=== PATIENT | male | born 1960 ===

== ENCOUNTER 2017-11-16 11:04 | Inpatient (IN) | payer MEDICARE, MEDICAID ==
[2017-11-16 11:05] VITALS: BMI 26.4
[2017-11-16 13:23] LABS: BASO # 0.1 K/uL (0.0-0.2); BASO % 1.4 % (0.0-2.0); EOS # 0.1 K/uL (0.0-0.7); EOS % 1.2 % (0.0-4.0); LYMPH % 12.2 % (20.0-40.0); MEAN CELL VOLUME 70.4 fl (80.0-94.0); MEAN CORPUSCULAR HEMOGLOBIN 21.8 pg (27.0-31.0); MEAN PLATELET VOLUME 9.8 fl (7.2-11.7); MONO # 0.7 K/uL (0.0-0.8); MONO % 8.8 % (0.0-10.0); NEUT # 6.5 K/uL (1.8-7.0); NEUT % 76.4 % (50.0-75.0); RBC 5.05 Mil/uL (4.40-5.90); RED CELL DISTRIBUTION WIDTH 21.7 % (11.5-14.5); WHITE BLOOD COUNT 8.5 K/uL (4.8-10.8)
[2017-11-16 14:01] LABS: CALCIUM 9.3 mg/dL (8.4-10.2)
[2017-11-16 14:11] LABS: TROPONIN I 0.033 ng/mL (0.00-0.120)
--- NOTE | 2017-11-16 14:16 | RAD ---
PROCEDURE: CHEST RADIOGRAPH, 1 VIEW HISTORY: dyspnea COMPARISON: No priors. FINDINGS: LUNGS: Prominence of the pulmonary vasculature may be secondary to AP technique and/or pulmonary vascular congestion. Right basilar atelectasis versus infiltrate. PLEURA: Small right pleural effusion. No appreciable pneumothorax. CARDIOVASCULAR: Left subclavian access AICD/ pacemaker. Atherosclerotic aortic calcifications. Cardiomediastinal silhouette enlarged. OSSEOUS STRUCTURES: Degenerative changes. VISUALIZED UPPER ABDOMEN: Normal. OTHER FINDINGS: None. IMPRESSION: Prominence of the pulmonary vasculature may be secondary to AP technique and/or pulmonary vascular congestion. Right basilar atelectasis versus infiltrate. Small right pleural effusion.
[2017-11-16] MEDS ORDERED: Lidocaine 1% Inj (20ml) ONE (14:42)
--- NOTE | 2017-11-16 15:07 | PCM.SURG1 ---
Surgeon's Initial Post Op Note - Surgeon's Notes Surgeon: Tiago Matamoros MD Emergency Room Tech: NONE Type of Anesthesia: None Pre-Operative Diagnosis: Malpositioned picc, heart failure Operative Findings: Right arm picc non functional. Post-Operative Diagnosis: Heart failure Operation Performed: Removal of right arm picc and placement of a single lumen 5 fr picc trimmed to 37 cm. Tip of picc in the SVC. Specimen/Specimens Removed: Existing picc Estimated Blood Loss: EBL {In ML}: 0 Blood Products Given: N/A Drains Used: No Drains Date of Surgery/Procedure: 11/16/17 Time of Surgery/Procedure: 15:00
--- NOTE | 2017-11-16 16:46 | ED PDOC ---
HPI: SOB/CHF/COPD Time Seen by Provider: 11/16/17 11:21 Chief Complaint (Nursing): Shortness Of Breath Chief Complaint (Provider): Shortness Of Breath History Per: Patient History/Exam Limitations: no limitations Onset/Duration Of Symptoms: Days (x 1 week) Current Symptoms Are (Timing): Still Present Associated Symptoms: Ankle/Leg Swelling Additional Complaint(s): Mayito Wong is a 57 y/o male who presents to the ER for difficulty breathing for 1 week. Patient also noticed a problem with his PICC line this morning; noticed swelling around the PICC line. Reports history of CHF, has a PICC line in place for a milrinone continuous drip, managed by his dial brusher Dr. Marley. Last week patient began having more increased leg swelling than usual, abdomen was more distended, and he began gaining significant weight. States he was just discharged from [facility] earlier this week for similar complaints. At the end of 2016, he was seen at [facility] with Dr. Marley for cardiac catheterization showing multiple vessel disease, and was recommended to have a CABG. Dr. Marley also referred him to [facility] for a transplant, but he did not follow up with that. Patient wants to see Dr. Pedraza for second opinion, which was scheduled for tomorrow. PMD: Dr. Lord - Risk Factors PE Risk Factors: Pos: CHF Past Medical History Reviewed: Historical Data, Nursing Documentation, Vital Signs Vital Signs: Last Vital Signs Temp 97.8 F 11/19/17 12:17 Pulse 102 H 11/19/17 12:17 Resp 18 11/19/17 12:17 BP 93/74 L 11/19/17 12:17 Pulse Ox 99 11/19/17 12:17 - Medical History PMH: Asthma, CAD, CHF, Diabetes, HTN, Hypercholesterolemia - Surgical History Surgical History: Pacemaker Denies: Coronary Stent Other surgeries: PICC line placement - Family History Family History: States: Unknown Family Hx - Social History Ex-Smoker (has not smoked in the last 12 months): Yes Alcohol: None Drugs: Denies - Immunization History Hx Tetanus Toxoid Vaccination: Yes (03/17/2013) Hx Influenza Vaccination: Yes Hx Pneumococcal Vaccination: Yes - Home Medications Home Medications: Ambulatory Orders Medication Instructions Recorded Aspirin [Aspirin Chewable] 81 mg PO DAILY 11/16/17 Atorvastatin [Lipitor] 40 mg PO HS 11/16/17 Carvedilol [Coreg] 3.125 mg PO DAILY 11/16/17 Clopidogrel [Plavix] 75 mg PO DAILY 11/16/17 Furosemide [Lasix] 40 mg PO BID 11/16/17 Gabapentin [Neurontin] 300 mg PO HS 11/16/17 Pantoprazole [Protonix EC Tab] 40 mg PO DAILY 11/16/17 levETIRAcetam [Keppra] 500 mg PO Q12 11/16/17 - Allergies Allergies/Adverse Reactions: Allergies Allergy/AdvReac Type Severity Reaction Status Date / Time No Known Allergies Allergy Verified 08/08/17 13:34 Review of Systems ROS Statement: Except As Marked, All Systems Reviewed And Found Negative Constitutional: Positive for: Other (PICC line malfunction) Respiratory: Positive for: Shortness of Breath Gastrointestinal: Positive for: Other (distension, + weight gain) Musculoskeletal: Positive for: Other (increasing lower leg edema) Physical Exam - Reviewed Nursing Documentation Reviewed: Yes Vital Signs Reviewed: Yes - Physical Exam Appears: Positive for: Non-toxic, No Acute Distress Head Exam: Positive for: ATRAUMATIC, NORMOCEPHALIC Skin: Positive for: Normal Color, Warm, Dry Eye Exam: Positive for: EOMI, Normal appearance, PERRL Neck: Positive for: Normal, Painless ROM Cardiovascular/Chest: Positive for: Regular Rate, Rhythm, Other (pacemaker in place). Negative for: Murmur Respiratory: Positive for: Normal Breath Sounds. Negative for: Accessory Muscle Use, Wheezing, Respiratory Distress Pulses-Radial (L): 2+ Pulses-Radial (R): 2+ Gastrointestinal/Abdominal: Positive for: Soft, Distended. Negative for: Tenderness Extremity: Positive for: Normal ROM, Swelling (Pitting edema at bilateral legs) , Other (PICC line at right arm). Negative for: Deformity Neurologic/Psych: Positive for: Alert, Oriented - Laboratory Results Result Diagrams: 11/19/17 05:35 11/18/17 07:21 - ECG O2 Sat by Pulse Oximetry: 100 (RA) Pulse Ox Interpretation: Normal Medical Decision Making Medical Decision Making: Initial Impression: Dyspnea, PICC line malfunction Differentials include: CHF exacerbation, PICC line misplacement Time: 12:44 Initial Plan: --BMP --pro BNP --Troponin I --CBC w/ differential --EKG --Chest X-ray --Reevaluation 14:14 CHEST X-RAY FINDINGS: LUNGS: Prominence of the pulmonary vasculature may be secondary to AP technique and/or pulmonary vascular congestion. Right basilar atelectasis versus infiltrate. PLEURA: Small right pleural effusion. No appreciable pneumothorax. CARDIOVASCULAR: Left subclavian access AICD/ pacemaker. Atherosclerotic aortic calcifications. Cardiomediastinal silhouette enlarged. OSSEOUS STRUCTURES: Degenerative changes. VISUALIZED UPPER ABDOMEN: Normal. OTHER FINDINGS: None. IMPRESSION: Prominence of the pulmonary vasculature may be secondary to AP technique and/or pulmonary vascular congestion. Right basilar atelectasis versus infiltrate. Small right pleural effusion. Reviewed findings, consistent with CHF exacerbation in the patient. Arranged for PICC line placement by IR. Time: 14:20 Discussed case w/ Dr. Marley, patients dial brusher, who will be on consult Time: 14:21 Discussed case w/ Dr. Lord, who will admit the patient for CHF exacerbation Scribe Attestation: Documented by Adelaide Nevarez, acting as a scribe for Sofia Falcon MD Provider Scribe Attestation: All medical record entries made by the Scribe were at my direction and personally dictated by me. I have reviewed the chart and agree that the record accurately reflects my personal performance of the history, physical exam, medical decision making, and the department course for this patient. I have also personally directed, reviewed, and agree with the discharge instructions and disposition. Disposition - Clinical Impression Clinical Impression: CHF exacerbation - Patient ED Disposition Is Patient to be Admitted: Yes Discussed With : Cristiano Lord Doctor Will See Patient In The: Hospital Counseled Patient/Family Regarding: Studies Performed, Diagnosis - Disposition Disposition Time: 14:21 Condition: FAIR - Pt Status Changed To: Hospital Disposition Of: Inpatient - Admit Certification Admit to Inpatient:: After my assessment, the patient will require hospitalization for at least two midnights. This is because of the severity of symptoms shown, intensity of services needed, and/or the medical risk in this patient being treated as an outpatient. - POA Present On Arrival: None
[2017-11-16] MEDS: Insulin Lispro (humaLOG) 100 Units/ml Inj SC SCH (22:00)
[2017-11-17] MEDS: Insulin Lispro (humaLOG) 100 Units/ml Inj SC SCH ×4 (06:47→22:00)
--- NOTE | 2017-11-17 08:36 | CARD ---
APPROVED REPORT EKG Measurement Heart [id number] <Conclusion> Atrial-sensed ventricular-paced rhythm Abnormal ECG
[2017-11-17 09:09] LABS: HEMOGLOBIN 10.3 g/dL (12.0-18.0); MEAN CELL VOLUME 71.2 fl (80.0-94.0); MEAN CORPUSCULAR HEMOGLOBIN 21.4 pg (27.0-31.0); MEAN CORPUSCULAR HGB CONC 30.1 g/dL (33.0-37.0); RBC 4.8 Mil/uL (4.40-5.90); RED CELL DISTRIBUTION WIDTH 21.4 % (11.5-14.5); WHITE BLOOD COUNT 8.3 K/uL (4.8-10.8)
[2017-11-17 09:18] LABS: CALCIUM 8.8 mg/dL (8.4-10.2)
[2017-11-17] MEDS: Pantoprazole 40 mg EC Tab PO SCH (09:20)
[2017-11-17] MEDS: Albuterol-Ipratrop 3 mg / 0.5 (3 ml) UD INH PRN ×2 (12:42→19:22)
--- NOTE | 2017-11-17 18:52 | CP.PCM.CON ---
History of Present Illness - History of Present Illness History of Present Illness: I was asked to see patient by Dr Lord. Patient is a 57 year old male with PMH NYHA Class 3 heart failure on milrinone, ischeic cardiomyopathy, BiVAICD who presents with acute on chronic systolic dysfunction. The patient was placed on milrinone due to mutlipl admissions for heart failure. He has been referred to cardiac surgery for high risk CABG, but initially refused. He most recently to have heart failure evaluation at [facility]. The patient has been somewhat noncompliant with his care, and now is agreeable based upon the severity of his symptoms. The patient was found to have dislodged PICC line and was not receiving milrinone therapy. He denies chest pain now. Review of Systems - Constitutional Constitutional: absent: As Per HPI, Anorexia, Chills, Daytime Sleepiness, Excessive Sweating, Fatigue, Fever, Frequent Falls, Headache, Increased Appetite , Lethargy, Malaise, Night Sweats, Snoring, Sleep Apnea, Weight Gain, Weight Loss, Weakness, Other - EENT Eyes: absent: As Per HPI, Blind Spots, Blurred Vision, Change in Vision, Decreased Night Vision, Diplopia, Discharge, Dry Eye, Exophthalmos, Floaters, Irritation, Itchy Eyes, Loss of Peripheral Vision, Pain, Photophobia, Requires Corrective Lenses, Sees Flashes, Spots in Vision, Tunnel Vision, Other Visual Disturbances, Loss of Vision, Other Ears: absent: As Per HPI, Decreased Hearing, Ear Discharge, Ear Pain, Tinnitus, Abnormal Hearing, Disequilibrium, Dizziness, Other Nose/Mouth/Throat: absent: As Per HPI, Epistaxis, Nasal Congestion, Nasal Discharge, Nasal Obstruction, Nasal Trauma, Nose Pain, Post Nasal Drip, Sinus Pain, Sinus Pressure, Bleeding Gums, Change in Voice, Dental Pain, Dry Mouth, Dysphagia, Halitosis, Hoarsness, Lip Swelling, Mouth Lesions, Mouth Pain, Odynophagia, Sore Throat, Throat Swelling, Tongue Swelling, Facial Pain, Neck Pain, Neck Mass, Other - Cardiovascular Cardiovascular: Dyspnea - Respiratory Respiratory: Dyspnea - Gastrointestinal Gastrointestinal: absent: As Per HPI, Abdominal Pain, Belching, Bloating, Change in Bowel Habits, Change in Stool Character, Coffee Ground Emesis, Constipation, Cramping, Diarrhea, Dyspepsia, Dysphagia, Early Satiety, Excessive Flatus, Fecal Incontinence, Heartburn, Hematemesis, Hematochezia, Loose Stools, Melena, Nausea, Odynophagia, Temesmus, Vomiting, Other - Genitourinary Genitourinary: absent: As Per HPI, Change in Urinary Stream, Difficulty Urinating, Dysuria, Flank Pain, Hematuria, Pyuria, Nocturia, Urinary Incontinence, Urinary Frequency, Urinary Hesitance, Urinary Urgency, Voiding Freq/Small Amts, Freq UTI, Hx Renal/Bladder Calculi, Hx /Renal Surgery, Bladder Distension, Other - Musculoskeletal Musculoskeletal: absent: As Per HPI, Abnormal Gait, Arthralgias, Atrophy, Back Pain, Deformity, Joint Swelling, Limited Range of Motion, Loss of Height, Muscle Cramps, Muscle Weakness, Myalgias, Neck Pain, Numbness, Radiating Pain into Limb, Stiffness, Tingling, Other - Integumentary Integumentary: absent: As Per HPI, Acne, Alopecia, Bleeding Lesions, Change in Hair, Change in Nails, Change in Pigmentation, Changing Lesions, Dry Skin, Erythema, Furuncle, Hirsutism, Lesions, New Lesions, Non-Healing Lesions, Photosensitivity, Pruritus, Rash, Skin Pain, Skin Ulcer, Sores, Striae, Swelling , Unusual Bruising, Wounds, Jaundice, Other - Neurological Neurological: absent: As Per HPI, Abnormal Gait, Abnormal Hearing, Abnormal Movements, Abnormal Speech, Behavioral Changes, Burning Sensations, Confusion, Convulsions, Disequilibrium, Dizziness, Numbness, Focal Weakness, Frequent Falls , Headaches, Lack of Coordination, Loss of Vision, Memory Loss, Paresthesias, Radicular Pain, Restless Legs, Sensory Deficit, Syncope, Tingling, Tremor, Vertigo, Weakness, Other Visual Disturbances, Other - Psychiatric Psychiatric: absent: As Per HPI, Abnormal Sleep Pattern, Anhedonia, Anxiety, Auditory Hallucinations, Behavioral Changes, Change in Appetite, Change in Libido, Confusion, Depression, Difficulty Concentrating, Hallucinations, Homicidal Ideation, Hopelessness, Irritability, Memory Loss, Mood Swings, Panic Attacks, Paranoia, Suicidal Ideation, Visual Hallucinations, Tactile Hallucinations, Other - Endocrine Endocrine: absent: As Per HPI, Change in Body Appearance, Change in Libido, Cold Intolorance, Deepening of Voice, Excessive Sweating, Fatigue, Flushing, Heat Intolorance, Increase in Ring/Shoe/Hat Size, Palpitations, Polydipsia, Polyphagia, Polyuria, Other - Hematologic/Lymphatic Hematologic: absent: As Per HPI, Easy Bleeding, Easy Bruising, Lymphadenopathy, Other Past Patient History - Infectious Disease Hx of Infectious Diseases: None - Past Medical History & Family History Past Medical History?: Yes - Past Social History Smoking Status: Former Smoker - CARDIAC Hx Cardiac Disorders: Yes Hx Congestive Heart Failure: Yes Hx Hypercholesterolemia: Yes Hx Hypertension: Yes - PULMONARY Hx Respiratory Disorders: No - NEUROLOGICAL Hx Neurological Disorder: No - HEENT Hx HEENT Problems: No - RENAL Hx Chronic Kidney Disease: No - ENDOCRINE/METABOLIC Hx Endocrine Disorders: Yes Hx Adrenal Cancer: No - HEMATOLOGICAL/ONCOLOGICAL Hx Blood Disorders: No - INTEGUMENTARY Hx Dermatological Problems: No - MUSCULOSKELETAL/RHEUMATOLOGICAL Hx Musculoskeletal Disorders: No Hx Falls: No - GASTROINTESTINAL Hx Gastrointestinal Disorders: Yes Hx Ulcer: Yes - GENITOURINARY/GYNECOLOGICAL Hx Genitourinary Disorders: No - PSYCHIATRIC Hx Psychophysiologic Disorder: No Hx Substance Use: No - SURGICAL HISTORY Hx Surgeries: Yes Hx Cardiac Catheterization: Yes Hx Coronary Stent: No Other/Comment: picc line insertion - ANESTHESIA Hx Anesthesia: Yes Hx Anesthesia Reactions: No Hx Malignant Hyperthermia: No Has any member of the family had a problem w/ anesthesia?: No Meds Allergies/Adverse Reactions: Allergies Allergy/AdvReac Type Severity Reaction Status Date / Time No Known Allergies Allergy Verified 08/08/17 13:34 - Medications Medications: Current Medications Albuterol/Ipratropium (Duoneb 3 Mg/0.5 Mg (3 Ml) Ud) 3 ml INH RQ6 PRN PRN Reason: Shortness of Breath Last Admin: 11/17/17 12:42 Dose: 3 ml Aspirin (Aspirin Chewable) 81 mg PO DAILY [facility] Last Admin: 11/17/17 09:22 Dose: 81 mg Atorvastatin Calcium (Lipitor) 40 mg PO HS [facility] Last Admin: 11/16/17 23:08 Dose: 40 mg Carvedilol (Coreg) 3.125 mg PO DAILY [facility] Last Admin: 11/17/17 09:19 Dose: 3.125 mg Clopidogrel Bisulfate (Plavix) 75 mg PO DAILY [facility] Last Admin: 11/17/17 09:19 Dose: 75 mg Furosemide (Lasix) 40 mg IV DAILY [facility] Last Admin: 11/17/17 09:20 Dose: 40 mg Gabapentin (Neurontin) 300 mg PO HS [facility] Last Admin: 11/16/17 23:09 Dose: 300 mg Home Med (Patient's Own Medication) 84 unit IV DAILY [facility] Insulin Human Lispro (Humalog) 0 units SC ACHS [facility] PRN Reason: Protocol Last Admin: 11/17/17 17:23 Dose: Not Given Lactulose (Enulose) 20 gm PO Q4 [facility] Levetiracetam (Keppra) 500 mg PO Q12 [facility] Last Admin: 11/17/17 09:18 Dose: 500 mg Pantoprazole Sodium (Protonix Ec Tab) 40 mg PO DAILY [facility] Last Admin: 11/17/17 09:20 Dose: 40 mg Spironolactone (Aldactone) 25 mg PO DAILY [facility] Last Admin: 11/17/17 13:58 Dose: 25 mg Physical Exam - Constitutional Appears: Chronically Ill - Head Exam Head Exam: NORMAL INSPECTION - Eye Exam Eye Exam: Normal appearance - ENT Exam ENT Exam: Mucous Membranes Moist - Neck Exam Neck exam: Positive for: Normal Inspection - Respiratory Exam Respiratory Exam: Decreased Breath Sounds - Cardiovascular Exam Cardiovascular Exam: REGULAR RHYTHM - GI/Abdominal Exam GI & Abdominal Exam: Distended - Rectal Exam Rectal Exam: Deferred - Extremities Exam Extremities exam: Positive for: pedal edema - Back Exam Back exam: NORMAL INSPECTION - Neurological Exam Neurological exam: Alert, Oriented x3 - Psychiatric Exam Psychiatric exam: Normal Affect - Skin Skin Exam: Normal Color Results - Vital Signs Recent Vital Signs: Last Vital Signs Temp 97.7 F 11/17/17 16:58 Pulse 62 11/17/17 16:58 Resp 20 11/17/17 16:58 BP 97/62 L 11/17/17 16:58 Pulse Ox 97 11/17/17 16:58 - Labs Result Diagrams: 11/17/17 08:35 11/17/17 08:35 Labs: Laboratory Results - last 24 hr 11/16/17 11/17/17 11/17/17 22:10 06:46 08:35 WBC 8.3 RBC 4.80 Hgb 10.3 L Hct 34.2 L MCV 71.2 L MCH 21.4 L MCHC 30.1 L RDW 21.4 H Plt Count 222 Sodium Potassium Chloride Carbon Dioxide Anion Gap BUN Creatinine Est GFR ( Amer) Est GFR (Non-Af Amer) POC Glucose (mg/dL) 141 H 104 Random Glucose Calcium 11/17/17 11/17/17 11/17/17 08:35 11:04 15:52 WBC RBC Hgb Hct MCV MCH MCHC RDW Plt Count Sodium 136 Potassium 4.4 Chloride 99 Carbon Dioxide 25 Anion Gap 16 BUN 35 H Creatinine 1.5 Est GFR ( Amer) 59 Est GFR (Non-Af Amer) 48 POC Glucose (mg/dL) 174 H 81 Random Glucose 102 Calcium 8.8 - EKG Data EKG Interpreted by: Myself Assessment & Plan (1) Acute on chronic systolic and diastolic heart failure, NYHA class 3 Assessment and Plan: will continue milrinone therapy. I discussed the need for evalaution by heart failure team in [place]. The patient and his agree. Status: Acute (2) CAD (coronary artery disease) Assessment and Plan: antiplatelet therapy Status: Acute
[2017-11-18 08:05] LABS: MEAN CELL VOLUME 89.3 fl (80.0-94.0); MEAN CORPUSCULAR HEMOGLOBIN 29.6 pg (27.0-31.0); MEAN CORPUSCULAR HGB CONC 33.1 g/dL (33.0-37.0); RBC 3.72 Mil/uL (4.40-5.90); RED CELL DISTRIBUTION WIDTH 15.1 % (11.5-14.5); WHITE BLOOD COUNT 8.6 K/uL (4.8-10.8)
[2017-11-18 08:33] LABS: BLOOD UREA NITROGEN 12 mg/dl (9-20); CALCIUM 8.1 mg/dL (8.4-10.2); GFR AFRICAN-AMERICAN > 60; GFR NON-AFRICAN AMERICAN > 60; MAGNESIUM 1.9 MG/DL (1.6-2.3)
[2017-11-18] MEDS: Insulin Lispro (humaLOG) 100 Units/ml Inj SC SCH ×4 (08:51→21:44)
[2017-11-18] MEDS: Pantoprazole 40 mg EC Tab PO SCH (08:52)
--- NOTE | 2017-11-18 08:57 | HP ---
HISTORY OR PRESENT ILLNESS: This is a 57-year-old male with history of multiple medical problems including ischemic cardiomyopathy with multivessel coronary artery disease, currently on milrinone drip, presented to emergency room with symptoms of shortness of breath, both exertional and at rest as well as bilateral lower extremity edema and increase of abdominal girth. The patient was evaluated in the emergency room and he was found also to have malfunctioning PICC line. PICC line was reinserted and milrinone drip was continued and the patient was admitted to telemetry floor for further management. OTHER REVIEW OF SYSTEMS: Generalized weakness and easy fatigability. MEDICATIONS: As per MAR. SOCIAL HISTORY: Ex-smoker. No EtOH or substance abuse. FAMILY HISTORY: Noncontributory. PAST MEDICAL HISTORY: Ischemic cardiomyopathy, multivessel coronary artery disease, type 2 diabetes mellitus, congestive heart failure, and hypertension. PHYSICAL EXAMINATION: GENERAL: The patient is in bed, in mild distress. VITAL SIGNS: Blood pressure 102/69, temperature 97.7, respiratory rate 20, and pulse 92. HEENT: Pupils equal, reactive to light. Normal-appearing mucosa of the conjunctivae, oropharynx, and nasal membrane mucosa. NECK: Supple. No JVD. No carotid bruit. No lymph node. No thyromegaly. CHEST AND LUNGS: Bilateral symmetrical expansion. Good air exchange. The patient has rales on bilateral bases. CARDIOVASCULAR SYSTEM: PMI not localized. S1, S2. No additional sounds. ABDOMEN: Normoactive bowel sounds. No tenderness. No organomegaly. No masses. EXTREMITIES: No cyanosis. No clubbing. No edema. CENTRAL NERVOUS SYSTEM: Alert, awake, oriented x3. No neurological deficits could be appreciated. ASSESSMENT: 1. Exacerbation of congestive heart failure, both systolic and diastolic, acute on chronic. 2. Ischemic cardiomyopathy. 3. Coronary artery disease. PLAN: Continue diuretics that ordered. Cardiology consult and follow recommendations. Resume the patient's home medications. Accu-Cheks with insulin coverage. We will add spironolactone daily and continue the furosemide intravenously. Guarded prognosis. Cristiano Lord MD [facility] # [phone]
[2017-11-18] MEDS: Albuterol-Ipratrop 3 mg / 0.5 (3 ml) UD INH PRN ×2 (11:12→19:27)
--- NOTE | 2017-11-18 14:41 | CP.PCM.PN ---
Subjective - Date & Time of Evaluation Date of Evaluation: 11/18/17 Time of Evaluation: 14:30 - Subjective Subjective: pateint has less dyspnea Objective - Vital Signs/Intake and Output Vital Signs (last 24 hours): Temp Pulse Resp BP Pulse Ox 97.5 F L 99 H 16 101/68 96 11/18/17 12:24 11/18/17 12:24 11/18/17 12:24 11/18/17 12:24 11/18/17 12:24 Intake and Output: 11/18/17 11/18/17 06:59 18:59 Intake Total 300 Output Total 400 Balance -100 - Medications Medications: Current Medications Albuterol/Ipratropium (Duoneb 3 Mg/0.5 Mg (3 Ml) Ud) 3 ml INH RQ6 PRN PRN Reason: Shortness of Breath Last Admin: 11/18/17 11:12 Dose: 3 ml Aspirin (Aspirin Chewable) 81 mg PO DAILY [facility] Last Admin: 11/18/17 08:50 Dose: 81 mg Atorvastatin Calcium (Lipitor) 40 mg PO HS [facility] Last Admin: 11/17/17 21:11 Dose: 40 mg Carvedilol (Coreg) 3.125 mg PO DAILY [facility] Last Admin: 11/18/17 08:50 Dose: 3.125 mg Clopidogrel Bisulfate (Plavix) 75 mg PO DAILY [facility] Last Admin: 11/18/17 08:50 Dose: 75 mg Furosemide (Lasix) 40 mg IV DAILY [facility] Last Admin: 11/18/17 08:52 Dose: 40 mg Gabapentin (Neurontin) 300 mg PO HS [facility] Last Admin: 11/17/17 21:11 Dose: 300 mg Home Med (Patient's Own Medication) 84 unit IV DAILY [facility] Insulin Human Lispro (Humalog) [address] [facility] PRN Reason: Protocol Last Admin: 11/18/17 11:41 Dose: 2 units Lactulose (Enulose) 20 gm PO Q4 [facility] Last Admin: 11/18/17 14:00 Dose: 20 gm Levetiracetam (Keppra) 500 mg PO Q12 [facility] Last Admin: 11/18/17 08:50 Dose: Not Given Pantoprazole Sodium (Protonix Ec Tab) 40 mg PO DAILY [facility] Last Admin: 11/18/17 08:52 Dose: 40 mg Spironolactone (Aldactone) 25 mg PO DAILY [facility] Last Admin: 11/18/17 08:52 Dose: 25 mg - Labs Labs: 11/18/17 07:21 11/18/17 07:21 - Constitutional Appears: Non-toxic - Head Exam Head Exam: NORMAL INSPECTION - Eye Exam Eye Exam: Normal appearance - ENT Exam ENT Exam: Mucous Membranes Moist - Neck Exam Neck Exam: Full ROM - Respiratory Exam Respiratory Exam: Decreased Breath Sounds - Cardiovascular Exam Cardiovascular Exam: REGULAR RHYTHM - GI/Abdominal Exam GI & Abdominal Exam: Normal Bowel Sounds - Rectal Exam Rectal Exam: Deferred - Extremities Exam Extremities Exam: Pedal Edema - Back Exam Back Exam: NORMAL INSPECTION - Neurological Exam Neurological Exam: Alert - Psychiatric Exam Psychiatric exam: Normal Affect - Skin Skin Exam: Normal Color Assessment and Plan (1) Acute on chronic systolic and diastolic heart failure, NYHA class 3 Assessment & Plan: still appears volume overloaded. conitnue milrinone, diuresis Status: Acute (2) CAD (coronary artery disease) Status: Acute
--- NOTE | 2017-11-19 02:46 | PN ---
DATE: 11/18/2017 DAILY PROGRESS NOTE SUBJECTIVE: The patient is seen today, 11/18/2017. He is not in any cardiopulmonary distress; at the time of this examination with a decreased generalized edema. PHYSICAL EXAMINATION VITAL SIGNS: Blood pressure is 105/73, temperature 97.3, respiratory rate 18 and pulse 90. HEENT: Pupils equal, reactive to light. Normal-appearing mucosa of the conjunctivae, oropharyngeal and nasal membrane mucosa. NECK: Supple. No JVD, no carotid bruit, no lymph node, no thyromegaly. CHEST AND LUNGS: Bilateral symmetrical expansion, had decreased air entry in both lower lung weaver. CARDIOVASCULAR SYSTEM: PMI not localized. S1, S2. No additional sounds. ABDOMEN: Normoactive bowel sounds. No tenderness. No organomegaly. No masses. EXTREMITIES: No cyanosis, no clubbing, no edema. CENTRAL NERVOUS SYSTEM: Alert, awake, oriented x2. No neurological deficit could be appreciated. ASSESSMENT: 1. Ischemic cardiomyopathy. 2. Exacerbation of congestive heart failure, acute on chronic systolic and diastolic, currently on milrinone drip. 3. Type 2 diabetes mellitus. PLAN: Follow up Cardiology recommendations and continue IV Lasix, daily weight. Continue Accu-Cheks with insulin coverage as needed. Cristiano Lord MD
[2017-11-19 06:28] LABS: HEMOGLOBIN 9.8 g/dL (12.0-18.0); MEAN CELL VOLUME 70.5 fl (80.0-94.0); MEAN CORPUSCULAR HEMOGLOBIN 21.9 pg (27.0-31.0); MEAN CORPUSCULAR HGB CONC 31.1 g/dL (33.0-37.0); RBC 4.5 Mil/uL (4.40-5.90); RED CELL DISTRIBUTION WIDTH 21.7 % (11.5-14.5); WHITE BLOOD COUNT 8.2 K/uL (4.8-10.8)
[2017-11-19] MEDS: Insulin Lispro (humaLOG) 100 Units/ml Inj SC SCH ×3 (06:54→17:24)
[2017-11-19] MEDS: Pantoprazole 40 mg EC Tab PO SCH (09:22)
[2017-11-19 12:40] VITALS: O2SAT 100
--- NOTE | 2017-11-19 14:39 | CP.PCM.PN ---
Subjective - Date & Time of Evaluation Date of Evaluation: 11/19/17 Time of Evaluation: 14:20 - Subjective Subjective: no current dyspnea. less edema Objective - Vital Signs/Intake and Output Vital Signs (last 24 hours): Temp Pulse Resp BP Pulse Ox 97.8 F 102 H 18 93/74 L 100 11/19/17 12:17 11/19/17 12:17 11/19/17 12:17 11/19/17 12:17 11/19/17 12:40 - Medications Medications: Current Medications Albuterol/Ipratropium (Duoneb 3 Mg/0.5 Mg (3 Ml) Ud) 3 ml INH RQ6 PRN PRN Reason: Shortness of Breath Last Admin: 11/18/17 19:27 Dose: 3 ml Aspirin (Aspirin Chewable) 81 mg PO DAILY [facility] Last Admin: 11/19/17 09:20 Dose: 81 mg Atorvastatin Calcium (Lipitor) 40 mg PO HS [facility] Last Admin: 11/18/17 21:42 Dose: 40 mg Carvedilol (Coreg) 3.125 mg PO DAILY [facility] Last Admin: 11/19/17 09:20 Dose: 3.125 mg Clopidogrel Bisulfate (Plavix) 75 mg PO DAILY [facility] Last Admin: 11/19/17 09:22 Dose: 75 mg Furosemide (Lasix) 40 mg IV DAILY [facility] Last Admin: 11/19/17 09:21 Dose: 40 mg Gabapentin (Neurontin) 300 mg PO HS [facility] Last Admin: 11/18/17 21:42 Dose: 300 mg Home Med (Patient's Own Medication) 84 unit IV DAILY [facility] Insulin Human Lispro (Humalog) 0 units SC [facility] PRN Reason: Protocol Last Admin: 11/19/17 06:54 Dose: Not Given Lactulose (Enulose) 20 gm PO Q4 [facility] Last Admin: 11/19/17 09:23 Dose: 20 gm Levetiracetam (Keppra) 500 mg PO Q12 [facility] Last Admin: 11/18/17 21:42 Dose: 500 mg Pantoprazole Sodium (Protonix Ec Tab) 40 mg PO DAILY [facility] Last Admin: 11/19/17 09:22 Dose: 40 mg Spironolactone (Aldactone) 25 mg PO DAILY [facility] Last Admin: 11/19/17 09:20 Dose: 25 mg - Labs Labs: 11/19/17 05:35 11/18/17 07:21 - Constitutional Appears: Non-toxic - Head Exam Head Exam: NORMAL INSPECTION - Eye Exam Eye Exam: Normal appearance - ENT Exam ENT Exam: Mucous Membranes Moist - Neck Exam Neck Exam: Full ROM - Respiratory Exam Respiratory Exam: Decreased Breath Sounds - Cardiovascular Exam Cardiovascular Exam: REGULAR RHYTHM - GI/Abdominal Exam GI & Abdominal Exam: Normal Bowel Sounds - Rectal Exam Rectal Exam: Deferred - Extremities Exam Extremities Exam: Pedal Edema - Back Exam Back Exam: NORMAL INSPECTION - Neurological Exam Neurological Exam: Alert - Psychiatric Exam Psychiatric exam: Normal Affect - Skin Skin Exam: Normal Color Assessment and Plan (1) Acute on chronic systolic and diastolic heart failure, NYHA class 3 Assessment & Plan: on milrinone. stable for discharge. patient to follow up with [facility]. Status: Acute (2) CAD (coronary artery disease) Status: Acute
[2017-11-19] MEDS: Albuterol-Ipratrop 3 mg / 0.5 (3 ml) UD INH PRN (15:03)
[2017-11-19 16:03] VITALS: BP 99/70; PULSE 100; RESP 16; TEMP 97.3
--- NOTE | 2017-11-20 10:04 | DS ---
REASON FOR ADMISSION: This is a 57-year-old male with history of multiple medical problems including ischemic cardiomyopathy and congestive heart failure, who was admitted through the emergency room for exacerbation of the same. COURSE OF HOSPITALIZATION: The patient was admitted to telemetry floor and he was continued on the milrinone drip. The patient had malfunctioning IV line on admission and a new line was placed. The patient was continued on diuretics and spironolactone. He had a Cardiology consult done by Dr. Marley. The patient was referred to Cardiothoracic Surgery in [facility] for possible coronary artery bypass graft surgery. FINAL DIAGNOSES: 1. Congestive heart failure. 2. Ischemic cardiomyopathy. 3. Type 2 diabetes mellitus. 4. Hypertension. [facility] MD Pop
--- NOTE | 2017-11-20 13:56 | VASCULAR ---
PROCEDURE: Date of procedure: 11/16/2017 Procedure: 1. Placement of a right arm PICC with ultrasound and fluoroscopic guidance, CPT 37307 2. PICC tip confirmation with spot radiograph and is in the superior vena cava Medications: 1 percent lidocaine Total Fluoro time: 6 seconds Radiation: 0.86 MGy EBL: 2 cc HISTORY: Infection requiring long-term IV antibiotics TECHNIQUE: Following informed consent and procedure time-out, the patient was placed supine on the interventional table and the right arm prepped and draped in the usual sterile fashion. Ultrasound showed a patent and compressible right basilic vein. After the skin was anesthetized with lidocaine, the basilic vein was accessed with micro micropuncture technique using ultrasound guidance. A guidewire was then advanced under fluoroscopic guidance into the superior vena cava. An image documenting ultrasound guidance for vascular access was permanently saved. The length of the single-lumen 4 [place] PICC was trimmed to 37 centimeters and advanced through a peel-away sheath. The PICC was position with tip of PICC confirm a spot radiograph the superior vena cava. The PICC was secured to the patient's skin. The PICC was flushed. A biopatch and sterile dressing was applied. IMPRESSION: Placement of a single-lumen 4 [place] PICC trimmed to 37 centimeters via right basilic vein. The tip of the PICC is confirmed with spot radiograph and is in the superior vena cava.
== END 2017-11-19 18:30 | disposition home health service (06) | DRG 292 ==
LOC: H.ER 11:04 → H.ERHOLD 14:21 → H.TEL 19:58
PROVIDERS: ADMIT Internal Medicine; ATTEND Internal Medicine
PROC: 02HV33Z Insertion of Infusion Device into Superior Vena Cava, Percutaneous Approach (ICD-10-PCS; principal; 2017-11-16)
PROC: B518ZZA Fluoroscopy of Superior Vena Cava, Guidance (ICD-10-PCS; 2017-11-16)
PROC: B548ZZA Ultrasonography of Superior Vena Cava, Guidance (ICD-10-PCS; 2017-11-16)
PROC: 02PY33Z Removal of Infusion Device from Great Vessel, Percutaneous Approach (ICD-10-PCS; 2017-11-16)
DX: I11.0 Hypertensive heart disease with heart failure (principal); T82.524A Displacement of infusion catheter, initial encounter; I50.43 Acute on chronic combined systolic (congestive) and diastolic (congestive) heart failure; J44.9 Chronic obstructive pulmonary disease, unspecified; Y71.2 Prosthetic and other implants, materials and accessory cardiovascular devices associated with adverse incidents; Z79.02 Long term (current) use of antithrombotics/antiplatelets; Z79.899 Other long term (current) drug therapy; Z87.891 Personal history of nicotine dependence; Z91.19 Patient's noncompliance with other medical treatment and regimen; I25.10 Atherosclerotic heart disease of native coronary artery without angina pectoris; I25.5 Ischemic cardiomyopathy; M79.89 Other specified soft tissue disorders; E11.9 Type 2 diabetes mellitus without complications; E78.00 Pure hypercholesterolemia, unspecified